=== PATIENT | female | born 2000 | race Caucasian/White ===

== ENCOUNTER → 2020-11-24 15:56 | Outpatient (ROUT) | payer OTHER, SELFPAY | PROVIDERS: Visit Provider Family Medicine | DX: Z34.90 Encounter for supervision of normal pregnancy, unspecified, unspecified trimester (principal) | CPT/HCPCS: 87081 ==

== ENCOUNTER → 2020-12-01 12:09 | Outpatient (CLI) | payer OTHER, SELFPAY ==
--- NOTE | 2020-12-01 | DI.US.S_ITS ---
PROCEDURE: US OB LIMITED INDICATIONS: DATES AND SIZE OUTSIDE/PRIOR DATING DATA: Last menstrual period (LMP): Unknown . LMP-based estimated date of delivery (BAIRON): Not applicable . First dating scan (date and location): 12/01/2020 . Estimated date of delivery (BAIRON) from first dating scan: 12/30/2020 . TECHNIQUE: Real-time scanning was performed of the fetus, with image documentation. Endovaginal scanning: No COMPARISON: None. FINDINGS: A single living intrauterine gestation is present. Presentation: Cephalic. Placenta: Placental position is posterior , without previa. Amniotic fluid index: 17.8 cm, normal range is 5-24 cm. heart rate: 136 beats per minute. Maternal cervical canal: 0.9 cm long. Normal lower limit is 2.5 cm. biometrics: BPD: 91 mm; 36 weeks 6 days Head circumference 327 mm; 37 weeks 1 day Abdominal circumference: 312 mm; 35 X 1 day Femur length: 6 6 mm; 34 weeks 1 day Estimated weight and percentile: 2621 g, which is at the 18th percentile for gestational age. Survey of anatomy currently includes normal spine, four-chamber heart view, left and right ventricular outflow tracts, stomach/abdomen, bilateral renal regions, urinary bladder/pelvis, bilateral upper and lower extremities. Estimated gestational age from current scan: 35 weeks 6 days . IMPRESSION: 1. Single living intrauterine gestation. 2. Shortened cervix. 3. Limited normal survey of anatomy. 4. Estimated weight is at the 18th percentile for gestational age. Dictated by: Kevin Hoang M.D. on 12/01/2020 at 13:39 Approved by: Kevin Hoang M.D. on 12/01/2020 at 13:42
--- NOTE | 2020-12-24 07:00 | DI.US.S_ITS ---
PROCEDURE: US OB LIMITED INDICATIONS: Amniocentesis, reportedly for lung maturity assessment. OUTSIDE/PRIOR DATING DATA: Last menstrual period (LMP): Not available. LMP-based estimated date of delivery (BAIRON): Not available . First dating scan (date and location): 12/01/20 . Estimated date of delivery (BAIRON) from first dating scan: 12/30/20 . TECHNIQUE: Real-time scanning was performed of the fetus, with image documentation. Endovaginal scanning: Not performed COMPARISON: [facility], OB LIMITED, 12/01/2020, 11:31. FINDINGS: A single living intrauterine gestation is present. Presentation: Vertex. Placenta: Placental position is left posterior , without previa. Amniotic fluid: Amount of amniotic fluid appears normal on survey scanning. At the anterior lower amniotic sac there is a ventral access pathway for amniocentesis, chosen and performed by Dr. Mason. heart rate: 130 beats per minute. Estimated gestational age from initial scan: Thirty-nine weeks 1 day Note: The amniotic fluid aspiration procedure was performed by Dr. Mason. The imaging shows access for fluid aspiration through the left upper quadrant, by notation on the imaging. The imaging shows needle access into the fluid, separate from the body and cord.. IMPRESSION: Sonographically documented access by needle into the amniotic fluid from LUQ approach, reported to have been successful. This procedure was performed by Dr. Mason, to obtain amniotic fluid for lung maturity assessment. Dictated by: Musa Lima M.D. on 12/24/2020 at 9:38 Approved by: Musa Lima M.D. on 12/24/2020 at 10:08
== END ==
PROVIDERS: PCP Family Medicine; Referring Provider Family Medicine; Visit Provider Family Medicine
DX: Z36.87 Encounter for antenatal screening for uncertain dates (principal); Z3A.35 35 weeks gestation of pregnancy
CPT/HCPCS: 76815; 76817

== ENCOUNTER 2020-12-24 06:31 | Observation (INO) | payer OTHER, SELFPAY ==
[2020-12-24 08:02] LABS: Add Manual Diff / Slide Review NO; Basophils Absolute Auto 100 /uL (0-100); Basophils Percent Auto 0.6 % (0-2); Eosinophils Absolute Auto 200 /uL (0-450); Eosinophils Percent Auto 1.6 % (2-4); Hematocrit 27.7 % (36-46); Lymphocytes Absolute Auto 2800 /uL (1100-4500); Lymphocytes Percent Auto 28.1 % (25-40); Mean Corpuscular HGB Conc 32.4 % (30-36); Mean Corpuscular Hemoglobin 25.5 PG (26-34); Mean Corpuscular Volume 78.6 fL (80-100); Monocytes Absolute Auto 600 /uL (0-900); Monocytes Percent Auto 6.5 % (3-14); Neutrophils Absolute Auto 6300 /uL (1500-7000); Neutrophils Percent Auto 63.2 % (50-75); Platelet Count 217 X10^3/uL (150-400); Red Blood Cell Count 3.53 X10^6/uL (4.0-5.2); Red Cell Distribution Width 15.7 % (11.6-14.8); White Blood Cell Count 9.9 X10^3/uL (4.5-11.0)
[2020-12-24 08:16] LABS: Aspartate Aminotransferase 19 IU/L (14-36); BUN Creatinine Ratio 10.6 (6-22); Blood Urea Nitrogen 7 mg/dL (7-17); Estimated Glomerular Filt Rate > 60.0 mL/min (>60); Uric Acid 5.1 mg/dL (2.5-6.2)
[2020-12-24 08:29] LABS: Creatinine Urine Random 42.9 mg/dL; Protein (Total) Urine Random 18 mg/dL (0-12); Protein Creatinine Ratio Urine 0.41 GRAM/24H
== END 2020-12-24 09:50 | disposition home or self-care (01) ==
PROVIDERS: Admitting Provider Obstetrics & Gynecology; PCP Family Medicine; Referring Provider Obstetrics & Gynecology; Visit Provider Obstetrics & Gynecology
DX: Z36.9 Encounter for antenatal screening, unspecified (principal); O48.0 Post-term pregnancy; Z3A.40 40 weeks gestation of pregnancy
CPT/HCPCS: 36415; 59000; 59025; 59050; 76815; 82570; 84156; 84450; 84550; 85025; G0378; G0379

== ENCOUNTER 2020-12-25 10:06 | Outpatient (CLI) | payer OTHER, SELFPAY ==
[2020-12-25] MEDS: BETAMETHASONE 30 MG/5 ML MDV 12 MG IM (11:26)
== END 2020-12-25 11:27 | disposition home or self-care (01) ==
LOC: LABOR 11:08 → OB 12-28 09:47
PROVIDERS: PCP Family Medicine; Referring Provider Family Medicine; Visit Provider Family Medicine
DX: O48.0 Post-term pregnancy (principal); Z3A.40 40 weeks gestation of pregnancy
CPT/HCPCS: 59025; 96372; G0378; G0379; J0702

== ENCOUNTER 2020-12-26 14:51 | Inpatient (IN) | payer OTHER, SELFPAY ==
[2020-12-26] MEDS: OXYTOCIN PREMIX 30 UNIT/500 ML PLAST..BAG IV (16:04)
[2020-12-26] MEDS: LACTATED RINGERS 1,000 ML 100 ML IV ×2 (16:04→19:02)
[2020-12-26 16:52] LABS: Add Manual Diff / Slide Review NO; Basophils Absolute Auto 0 /uL (0-100); Basophils Percent Auto 0.1 % (0-2); Eosinophils Absolute Auto 0 /uL (0-450); Eosinophils Percent Auto 0.1 % (2-4); Hematocrit 26.4 % (36-46); Hemoglobin 8.5 g/dL (12.0-16.0); Lymphocytes Absolute Auto 2000 /uL (1100-4500); Lymphocytes Percent Auto 14.9 % (25-40); Mean Corpuscular HGB Conc 32.3 % (30-36); Mean Corpuscular Hemoglobin 25.4 PG (26-34); Mean Corpuscular Volume 78.6 fL (80-100); Monocytes Absolute Auto 1000 /uL (0-900); Monocytes Percent Auto 7.7 % (3-14); Neutrophils Absolute Auto 10300 /uL (1500-7000); Neutrophils Percent Auto 77.2 % (50-75); Platelet Count 220 X10^3/uL (150-400); Red Blood Cell Count 3.36 X10^6/uL (4.0-5.2); Red Cell Distribution Width 16.5 % (11.6-14.8); White Blood Cell Count 13.3 X10^3/uL (4.5-11.0)
[2020-12-26 17:31] LABS: COVID19 - ADMIT (NP swab/PCR) Negative (Negative)
[2020-12-26 17:36] VITALS: BP 122/74
[2020-12-26 17:48] LABS: Alanine Aminotransferase 10 IU/L (<35); Albumin 3.1 g/dL (3.5-5.0); Albumin Globulin Ratio 0.9 (1.0-2.8); Alkaline Phosphatase 120 U/L (38-126); Aspartate Aminotransferase 22 IU/L (14-36); BUN Creatinine Ratio 16.1 (6-22); Bilirubin Total 0.1 mg/dL (0.2-1.3); Blood Urea Nitrogen 9 mg/dL (7-17); Carbon Dioxide 20 mmol/L (22-32); Chloride 110 mmol/L (98-107); Estimated Glomerular Filt Rate > 60.0 mL/min (>60); Globulin 3.4 g/dL (1.7-4.1); Glucose 103 mg/dL (70-100); HEMOLYSIS < 15 (0-50); Potassium 3.9 mmol/L (3.4-5.1); Sodium 137 mmol/L (137-145); Total Protein 6.5 g/dL (6.3-8.2); Uric Acid 4.8 mg/dL (2.5-6.2)
--- NOTE | 2020-12-26 18:01 | P.HPOB_ITS ---
OB HPI Date/Time Date of admission: 12/26/20 Date Patient Seen: 12/26/20 Time Patient Seen: 18:01 History of Present Condition Chief complaint: : 1 Para: 0 Estimated Date of Delivery: 12/24/20 Estimated Gestational Age (weeks): 40 2\7 Narrative: Alicia Grande is a 20 year old female who had no care until 32 weeks. Does not remember when her last period was. She came in to her emergency room at [place] complaining of abdominal pain ultrasound at that time placed her at 32 weeks with an EDC of 8 10/09. She presented at my office at 36 weeks GBS was negative repeat ultrasound also was consistent with 12/24/2020. Patient had no lab abnormalities. Has never had any medical problems. Has not been with any significant medical problems. Last week she began to have slightly elevated blood pressures which then developed into 140 to 150s over 90s to 95. She had 3 lb weight gain over 2 days. Exam showed brisk reflexes but no clonus. She was having some mild headaches but no abdominal pain. Not had any contractions. No nausea or vomiting. Otherwise has felt well. Without sign ificant changes baby has been moving well no leaking fluid no contractions Indications Indication for induction OB: gestational HTN/pre-eclampsia History of Present care: limited care and initiated at week # (32) Dating criteria: based on 3rd trimester US only Ultrasounds: other Obstetrical complications: gestational hypertension Medical complications: none Preadmission Labs Blood type: B (+) positive HCT: 29 HCAB: negative PAP: Normal Prior (ies) History: None Evaluation Evaluation Baseline heart rate: 140 Variability: Marked (>25) monitor accelerations: Present Monitor Decelerations: Absent Contraction Frequency (minutes): 4 Uterine Contraction Intensity: Mild Category of Tracing: Reactive Status: Category l Cervical dilation (cm): 2 Cervical effacement (%): 80 station: -1 Non-invasive Membranes Rupture Test: positive Comments: AROM with clear fluid PFSH Social History Smoking Status: Never smoker Meds Home Medications and Allergies Home Medications Medication Instructions Recorded Confirmed Type ferrous sulfate 325 mg (65 mg 325 mg PO DAILY 12/26/20 12/26/20 History iron) tablet (Iron (ferrous sulfate)) prenat.vits,gabe,[id number] 1 tab PO DAILY 12/26/20 12/26/20 History Allergies Allergy/AdvReac Type Severity Reaction Status Date / Time No Known Drug Allergies Allergy Verified 12/26/20 17:41 Exam Vital Signs (past 8 hours): - 12/26/20 17:36 Blood Pressure 122/74 Narrative Exam Narrative: Alert mildly anxious young female in no acute distress Gravid estimated weight 7 lb nontender extremities without cyanosis clubbing edema Objective Labs Result Diagrams: 12/26/20 15:30 12/26/20 15:15 Labs: Laboratory Results - last 24 hr 12/26/20 12/26/20 12/26/20 15:15 15:15 15:30 WBC RBC Hgb Hct MCV MCH MCHC RDW Plt Count Neut % (Auto) Lymph % (Auto) [place] % (Auto) Eos % (Auto) Baso % (Auto) Neut # (Auto) Lymph # (Auto) [place] # (Auto) Eos # (Auto) Baso # (Auto) Sodium 137 Potassium 3.9 Chloride 110 H Carbon Dioxide 20 L BUN 9 Creatinine 0.56 Estimated GFR > 60.0 BUN/Creatinine Ratio 16.1 Glucose 103 H Uric Acid 4.8 Calcium 9.0 Total Bilirubin 0.1 L AST 22 ALT 10 Alkaline Phosphatase 120 Total Protein 6.5 Albumin 3.1 L Globulin 3.4 Albumin/Globulin Ratio 0.9 L SARS-CoV-2 (PCR) Blood Type B Positive Antibody Screen Negative 12/26/20 12/26/20 15:30 15:30 WBC 13.3 H RBC 3.36 L Hgb 8.5 L Hct 26.4 L MCV 78.6 L MCH 25.4 L MCHC 32.3 RDW 16.5 H Plt Count 220 Neut % (Auto) 77.2 H Lymph % (Auto) 14.9 L [place] % (Auto) 7.7 Eos % (Auto) 0.1 L Baso % (Auto) 0.1 Neut # (Auto) 28662 H Lymph # (Auto) 2000 [place] # (Auto) 1000 H Eos # (Auto) 0 Baso # (Auto) 0 Sodium Potassium Chloride Carbon Dioxide BUN Creatinine Estimated GFR BUN/Creatinine Ratio Glucose Uric Acid Calcium Total Bilirubin AST ALT Alkaline Phosphatase Total Protein Albumin Globulin Albumin/Globulin Ratio SARS-CoV-2 (PCR) Negative Blood Type Antibody Screen Assessment and Plan Assessment and Plan Assessment and Plan narrative: 40 and 276 week intrauterine with late care and poor care with unclear dates. Patient with increasing blood pressure over the last week with rapid weight gain. Ultrasound on showed grade 3 placenta. Patient had lung maturity done which showed borderline results. But after discussion with Dr. Mason and [facility] all recommend induction. Will begin induction certainly today right now blood pressure looks good labs look okay. At this point rupture was undertaken will continue Pitocin and epidural as needed. Mom is giving baby up for adoption will be very cognizant of this. Mom does not hold baby or or see.
[2020-12-26] MEDS: FENT 2MCG/ML BUPIV 0.125% EPI 200 MCG/100 ML PLAST..BAG 6 MCG EPIDURAL (19:03)
--- NOTE | 2020-12-26 19:04 | P.PCN_ITS ---
Regional Block Pre-procedure Procedure: Continuous Lumbar Epidural for L&D Attending OB provider: Lazaro Biggs PMH/ROS narrative: term (40+2) induction for elevated blood pressure, RUQ pain, 3lb weight gain over last week. Late to care, but no other complications with , no significant PMH. Plan for baby up for adoption. ASA Class: II Labs: Hct 26.4 % (36-46) L 12/26/20 15:30 Plt Count 220 X10^3/uL (150-400) 12/26/20 15:30 Medications: Current Medications Generic Name Dose Route Start Last Admin Trade Name Freq PRN Reason Stop Dose Admin Acetaminophen 650 mg 12/26/20 15:22 Acetaminophen 325 Mg Tablet PO Q4HR PRN Fever/Mild Pain (1-3) Diphenhydramine HCl 25 mg 12/26/20 18:25 Diphenhydramine 50 Mg/Ml Vial IV Q10M PRN Pruritis Lactated Ringer's 1,000 mls @ 100 mls/hr 12/26/20 15:30 12/26/20 19:02 Lactated Ringers IV 100 mls/hr CONT MARIAMA Administration Oxytocin/Lactated Ringer's 30 unit in 500 mls @ 3 mls/hr 12/26/20 15:30 12/26/20 16:04 Oxytocin Premix IV 3 milliunit/min TITRATE MARIAMA 3 mls/hr Administration Protocol 3 MILLIUNIT/MIN FENT 2MCG/ML BUPIV 0.125% EPI 200 mcg in 100 mls @ 6 mls/hr 12/26/20 18:30 12/26/20 19:03 Fentanyl/Bupiv/Ns 2mcg/Ml - 0.125% EPIDURAL 6 mls/hr CONT MARIAMA Administration Allergies: Allergies Allergy/AdvReac Type Severity Reaction Status Date / Time No Known Drug Allergies Allergy Verified 12/26/20 17:41 Procedure Insertion date: 12/26/20 Insertion time: 18:43 Prep/Local: betadine x3 and 1% lidocaine Interspace: L3-4 Patient position: sitting Needle: 18 gauge LikeBrighttead (CSE: 27g Pencan through Hustead, clear CSF, 1mL 0.25% bupiv) Loss of resistance with: saline SUKHJINDER at (cm): 4 Catheter placed at SKIN (cm): 9 Catheter in SPACE (cm): 5 Insertion: No CSF, No Blood, No Paresthesia with insertion, No Paresthesia with injection and No Test dose reaction Initial Medications TEST DOSE time: 18:45 TEST DOSE: 1.5% lidocaine with epinephrine 1:200k (mL): 3 BOLUS DOSE time: 18:58 BOLUS DOSE (mL): 3 BOLUS DOSE med: other (infusate) Infusion INFUSION: 0.125% bupivacaine and with fentanyl 2 mcg/mL Initial rate (mL/hr): 6 Subsequent interventions: 20:04 rate to 8mL/h for increased sensation RLQ. Pain well controlled, pt comfortable. Post-procedure Anesthesia time START: 18:32 Anesthesia time END: 23:55 Post-procedure Anesthesia Assessment: Yes CV function: HR/BP stable, Yes Resp function: RR/sat/airway adequate, Yes Mental status appropriate and No Anesthesia complications
--- NOTE | 2020-12-27 00:54 | P.PCNOB_ITS ---
Events: Induced HTN and Other (Late care.) Labor & Delivery Delivery date: 12/27/20 Intrapartal Events: None Induction method: per pitocin protocol Delivery augmentation: rupture of membranes Delivery monitor: external FHT Route of delivery: Episiotomy description: None L&D Laceration Description: Periurethral - 2nd Degree and Perineal - 2nd Degree Delivery repair: chromic Estimated blood loss (mL): 200 Anesthesia Type: Epidural Complications: None Narrative: Mother was brought in for induction for elevated blood pressure. She was began on Pitocin. heart monitor was reactive throughout the for staging category 1. Mother's blood pressure intermittently was elevated but overall remains stable. No treatment was necessary. Approximately 6 hours prior to delivery she was ruptured with AROM with clear fluid. Tolerated well. Epidural was placed around 3 cm. Patient was comfortable progressive the rest of for stage relatively rapidly. She labored down for 1 hour. She had been began second-stage and pushed for approximately 1 hour. An SCD OA over 2nd degree periurethral tears slightly worse on the left lateral labia down to perineal tear small 2nd degree. Head was delivered onto the perineum a loose nuchal cord was present was easily reduced. Shoulder then delivered and child in delivered without complications cord was clamped and cut and handed off to nurse. Baby was evaluated and found to be doing well with no need for resuscitation and was transferred to the nursery. Cord bloods were obtained. Placenta was delivered intact 3 vessels minimal bleeding. EBL 200 cc. Left periurethral tear was in repaired with running 2-0 chromic. The larger left- sided labial laceration was then repaired with running subcuticular 3-0 chromic. The midline tear was then repaired in the usual manner. Small amount of anesthesia with lidocaine was needed on the right side but otherwise patient tolerated well secondary to epidural. Mother and infant were in stable condition. Routine care. We will watch her I&Os closely we will recheck her blood work tomorrow. Will follow her exam and make sure that blood pressures remain stable and she does well. Possible discharge tomorrow depending on how those vital signs do.
[2020-12-27] MEDS: ACETAMINOPHEN 325 MG TABLET 650 MG PO (01:43)
[2020-12-27] MEDS: IBUPROFEN 600 MG TABLET PO (01:44)
--- NOTE | 2020-12-27 11:30 | P.DS_ITS ---
Discharge Providers Provider Date of admission: 12/26/20 14:51 Discharge Date: 12/27/20 Primary care physician: Lazaro Biggs MD Consults: 12/28/20 00:36 Consult to Rating Examiner Routine Comment: Discharge provider: Lazaro Biggs MD Summary Hospital Course Date Patient Seen: 12/27/20 Time Patient Seen: 11:30 Diagnoses: Term intrauterine . -induced hypertension. Poor care. Hospital Course: Patient was admitted the hospital for induction. Blood pressure initially was elevated and then improved. Variability throughout the course of her labor. She had no headache no visual symptoms and reflexes were normal on exam. She had no other significant change or complaints. Labor progressed and vaginal delivery was undertaken please see delivery note. Patient tolerated well. No other changes. Patient did well . Emotionally doing well. Has had normal blood pressures. Awaiting labs. Otherwise patient did extremely well. We discussed depression we discussed control she is thinking about an implant. We discussed signs and symptoms of concern we discussed binding breasts and most mastitis and signs of infection. Usual instructions given questions answered we will discharge home and follow up on Monday Peripartum Data Infant Delivery Method: Natural Vaginal Laceration Description: Periurethral - 2nd Degree and Perineal - 2nd Degree Episiotomy description: None Status at Discharge Cognitive/behavioral status at discharge: oriented Functional status at discharge: independent ambulation Overall status at discharge: patient is progressing back to baseline Time Spent with Patient Time attestation: Total time spent providing and/or coordinating discharge services: Objective Labs Result Diagrams: 12/26/20 15:30 12/26/20 15:15 Labs: Laboratory Results - last 24 hr 12/26/20 12/26/20 12/26/20 15:15 15:15 15:30 WBC RBC Hgb Hct MCV MCH MCHC RDW Plt Count Neut % (Auto) Lymph % (Auto) [place] % (Auto) Eos % (Auto) Baso % (Auto) Neut # (Auto) Lymph # (Auto) [place] # (Auto) Eos # (Auto) Baso # (Auto) Sodium 137 Potassium 3.9 Chloride 110 H Carbon Dioxide 20 L BUN 9 Creatinine 0.56 Estimated GFR > 60.0 BUN/Creatinine Ratio 16.1 Glucose 103 H Uric Acid 4.8 Calcium 9.0 Total Bilirubin 0.1 L AST 22 ALT 10 Alkaline Phosphatase 120 Total Protein 6.5 Albumin 3.1 L Globulin 3.4 Albumin/Globulin Ratio 0.9 L SARS-CoV-2 (PCR) Blood Type B Positive Antibody Screen Negative 12/26/20 12/26/20 15:30 15:30 WBC 13.3 H RBC 3.36 L Hgb 8.5 L Hct 26.4 L MCV 78.6 L MCH 25.4 L MCHC 32.3 RDW 16.5 H Plt Count 220 Neut % (Auto) 77.2 H Lymph % (Auto) 14.9 L [place] % (Auto) 7.7 Eos % (Auto) 0.1 L Baso % (Auto) 0.1 Neut # (Auto) 16144 H Lymph # (Auto) 2000 [place] # (Auto) 1000 H Eos # (Auto) 0 Baso # (Auto) 0 Sodium Potassium Chloride Carbon Dioxide BUN Creatinine Estimated GFR BUN/Creatinine Ratio Glucose Uric Acid Calcium Total Bilirubin AST ALT Alkaline Phosphatase Total Protein Albumin Globulin Albumin/Globulin Ratio SARS-CoV-2 (PCR) Negative Blood Type Antibody Screen Exam Narrative Exam Narrative: Alert female in no acute distress. Uterus is firm. Extremities unremarkable. Discharge Plan Discharge Plan Patient Disposition: Home Discharge orders & Medications Prescriptions: Continued ferrous sulfate [Iron (ferrous sulfate)] 325 mg (65 mg iron) Tablet 325 mg PO DAILY RF: 0 Discontinued Vitamin Tablet 1 tab PO DAILY RF: 0 Follow up/Referrals: Lazaro Biggs MD [Primary Care Provider] - 12/29/20 (Call for appointment tomorrow) Discharge Health Status Multidrug resistant organism: No MDRO Diet/Activity/Treatments Diet: Diet as Tolerated Activity: As tolerated Other treatments: Iced perineum as needed. Use peribottle as instructed Skin/Wound/Dressing Care Report to your healthcare provider any signs of infection, such as:: chills, fever and increased pain Discharge Data Primary Care Provider: aLzaro Biggs
[2020-12-27 11:47] VITALS: BP 129/79; PULSE 71; RESP 16; TEMP 36.3
[2020-12-27 11:50] LABS: Eosinophils Absolute Auto 100 /uL (0-450); Eosinophils Percent Auto 0.3 % (2-4); Hematocrit 24.4 % (36-46); Hemoglobin 7.9 g/dL (12.0-16.0); Mean Corpuscular HGB Conc 32.2 % (30-36); Mean Corpuscular Hemoglobin 25.2 PG (26-34); White Blood Cell Count 15.3 X10^3/uL (4.5-11.0)
[2020-12-27 11:55] LABS: Add Manual Diff / Slide Review NO; Basophils Absolute Auto 100 /uL (0-100); Basophils Percent Auto 0.4 % (0-2); Lymphocytes Absolute Auto 2700 /uL (1100-4500); Lymphocytes Percent Auto 17.5 % (25-40); Mean Corpuscular Volume 78.4 fL (80-100); Monocytes Absolute Auto 1300 /uL (0-900); Monocytes Percent Auto 8.4 % (3-14); Neutrophils Absolute Auto 11200 /uL (1500-7000); Neutrophils Percent Auto 73.4 % (50-75); Platelet Count 193 X10^3/uL (150-400); Red Blood Cell Count 3.11 X10^6/uL (4.0-5.2); Red Cell Distribution Width 16.3 % (11.6-14.8)
== END 2020-12-27 13:10 | disposition home or self-care (01) | DRG 807 ==
PROVIDERS: Admitting Provider Family Medicine; PCP Family Medicine; Referring Provider Family Medicine; Visit Provider Family Medicine
DX: O13.4 Gestational [pregnancy-induced] hypertension without significant proteinuria, complicating childbirth (principal); Z37.0 Single live birth; Z3A.40 40 weeks gestation of pregnancy; O69.81X0 Labor and delivery complicated by cord around neck, without compression, not applicable or unspecified; Z20.822 Contact with and (suspected) exposure to COVID-19; O48.0 Post-term pregnancy
CPT/HCPCS: 01967; 36415; 59050; 80053; 84550; 85025; 86850; 86900; 86901; 87635; C9803; G0379; J2590

== ENCOUNTER → 2021-01-01 17:31 | Outpatient (CLI) | payer OTHER, SELFPAY ==
[2021-01-01 17:59] LABS: Add Manual Diff / Slide Review NO; Basophils Absolute Auto 0 /uL (0-100); Basophils Percent Auto 0.2 % (0-2); Eosinophils Absolute Auto 400 /uL (0-450); Eosinophils Percent Auto 2.9 % (2-4); Hematocrit 30.4 % (36-46); Hemoglobin 9.6 g/dL (12.0-16.0); Lymphocytes Absolute Auto 2000 /uL (1100-4500); Lymphocytes Percent Auto 15.6 % (25-40); Mean Corpuscular HGB Conc 31.5 % (30-36); Mean Corpuscular Hemoglobin 24.7 PG (26-34); Mean Corpuscular Volume 78.4 fL (80-100); Monocytes Absolute Auto 800 /uL (0-900); Monocytes Percent Auto 6.4 % (3-14); Neutrophils Absolute Auto 9500 /uL (1500-7000); Neutrophils Percent Auto 74.9 % (50-75); Platelet Count 345 X10^3/uL (150-400); Red Blood Cell Count 3.88 X10^6/uL (4.0-5.2); Red Cell Distribution Width 16.7 % (11.6-14.8); White Blood Cell Count 12.7 X10^3/uL (4.5-11.0)
[2021-01-01 18:14] LABS: Alanine Aminotransferase 14 IU/L (<35); Albumin 3.8 g/dL (3.5-5.0); Alkaline Phosphatase 120 U/L (38-126); Aspartate Aminotransferase 20 IU/L (14-36); Bilirubin Total 0.4 mg/dL (0.2-1.3); Blood Urea Nitrogen 11 mg/dL (7-17); Calcium 9.1 mg/dL (8.4-10.2); Carbon Dioxide 24 mmol/L (22-32); Chloride 104 mmol/L (98-107); Estimated Glomerular Filt Rate > 60.0 mL/min (>60); Globulin 3.8 g/dL (1.7-4.1); Glucose 95 mg/dL (70-100); HEMOLYSIS < 15 (0-50); Potassium 3.7 mmol/L (3.4-5.1); Sodium 137 mmol/L (137-145); Total Protein 7.6 g/dL (6.3-8.2); Uric Acid 4.9 mg/dL (2.5-6.2)
[2021-01-01 18:52] LABS: TSH w/ Reflex to FT4 1.27 uIU/mL (0.47-4.68)
== END ==
PROVIDERS: PCP Family Medicine; Referring Provider Family Medicine; Visit Provider Family Medicine
DX: O11.9 Pre-existing hypertension with pre-eclampsia, unspecified trimester (principal); N64.4 Mastodynia
CPT/HCPCS: 36415; 80053; 84443; 84550; 85025